=== PATIENT | female | born 1995 | race Caucasian/White ===

== ENCOUNTER 2018-07-05 22:56 | Emergency (ER) | payer OTHER, SELFPAY ==
[2018-07-05 23:05] VITALS: BP 133/72; PULSE 76; RESP 16; TEMP 37.2; O2SAT 100; BMI 33.2
--- NOTE | 2018-07-05 23:07 | ED.GENADULT ---
HPI - General Adult General Chief complaint: Chest Pain Stated complaint: RT SIDE RIB PAIN INJURY Time Seen by Provider: 07/05/18 22:59 Source: patient Mode of arrival: ambulatory Limitations: no limitations History of Present Illness HPI narrative: 23-year-old female here for evaluation of right-sided rib pain. She states that she hit her right ribs when she fell off the sled earlier today. Does have some discomfort with taking deep breaths however does not have any shortness of breath. No rashes. Has not tried anything for prior to arrival. Related Data Allergies Allergy/AdvReac Type Severity Reaction Status Date / Time No Known Drug Allergies Allergy Verified 07/05/18 23:13 Review of Systems Constitutional Denies fever(s) Cardiovascular Reports chest pain Respiratory Reports pain on inspiration Gastrointestinal Gastrointestinal: Denies nausea and Denies vomiting Integumentary/Breasts Denies rash Hematologic/Lymphatic Denies easy bleeding and Denies easy bruising PFSH Medical History Healthy adult (Acute) Surgical History No pertinent past surgical history (Acute) Social History Smoking Status: Never smoker Social History Smoking Status: Never smoker Exam Initial Vital Signs Initial Vital Signs: Vital Signs Temperature 99.0 F 07/05/18 23:05 Pulse Rate 76 07/05/18 23:05 Respiratory Rate 16 07/05/18 23:05 Blood Pressure 133/72 07/05/18 23:05 Pulse Oximetry 100 07/05/18 23:05 Const General: cooperative, comfortable, well developed, well groomed and No acute distress Orientation: alert, awake and oriented x3 HENMT Head: normal to inspection and normocephalic Chest Other: Tenderness to palpation under the right breast in the lower ribs anteriorly. No crepitus felt. Resp Effort & Inspection: normal respiratory effort Auscultation: clear to auscultation bilaterally Cardio Rate: regular rate GI Palpation: No tender Skin Lesions: no lesions Rashes: no rashes Extrem General: normal to inspection and capillary refill normal Course Orders Ordered: ED Orders 07/05/18 23:11 XR ribs RT min 3V w CXR1V Stat Vital Signs - 8 hr 07/05/18 23:05 Temperature 99.0 F Pulse Rate 76 Respiratory Rate 16 Blood Pressure 133/72 Pulse Oximetry 100 Medical Decision Making Imaging Data X-ray ribs: Attestation: I personally reviewed and interpreted this imaging study as follows: My impression: No fractures, no dislocations MDM Narrative Medical decision making narrative: Normal respiratory status. No fractures on the x-ray. Discussed return precautions. Patient expressed understanding and agreement with plan. Discharge Plan Departure Patient Disposition: Home Clinical Impression: Rib pain on right side Instructions: DI for Rib Contusion Activity Restrictions/Additional Instructions: You can take Tylenol and/or Motrin for any discomfort. I expect your symptoms will improve in the next several days. Return to the emergency department for any new or worsening symptoms
--- NOTE | 2018-07-05 23:11 | DI.RAD.S_ITS ---
PROCEDURE: XR RIBS RT MIN 3V W CXR 1V INDICATIONS: right lower anterior rib pain TECHNIQUE: 2 views of the right ribs were acquired, along with a single view chest. COMPARISON: None. FINDINGS: Surgical changes and devices: None. Bones and chest wall: No fractures or dislocations. No suspicious bony lesions. Overlying soft tissues appear unremarkable. Lungs and pleura: No pleural effusions or pneumothorax. Lungs appear clear. Mediastinum: Mediastinal contours appear normal. Heart size is normal. IMPRESSION: No acute disease. No rib fracture seen. Dictated by: Neil Jensen M.D. on 07/06/2018 at 7:33 Approved by: Neil Jensen M.D. on 07/06/2018 at 7:35
== END 2018-07-05 23:44 | disposition home or self-care (01) ==
PROVIDERS: Emergency Provider Emergency Medicine
DX: R07.81 Pleurodynia (principal); Y93.23 Activity, snow (alpine) (downhill) skiing, snowboarding, sledding, tobogganing and snow tubing
CPT/HCPCS: 71101; 99282; 99283